=== PATIENT | female | born 1990 | race American Indian/Alaskan Native ===

== ENCOUNTER 2017-12-21 19:46 | Emergency (ER) | payer OTHER ==
[2017-12-21 20:26] VITALS: BP 104/62
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
[2017-12-21] MEDS ORDERED: NORCO 7.5/325 PO ONE (22:48)
[2017-12-21] MEDS ORDERED: FLEXERIL PO ONE (22:48)
[2017-12-21] MEDS ORDERED: NORCO 7.5/325 ONE (22:50)
[2017-12-21] MEDS ORDERED: FLEXERIL ONE (22:50)
== END 2017-12-22 00:55 | disposition home or self-care (01) ==
LOC: ED 19:46
DX: S16.1XXA Strain of muscle, fascia and tendon at neck level, initial encounter (principal); J01.90 Acute sinusitis, unspecified; J34.89 Other specified disorders of nose and nasal sinuses; M79.1 Myalgia; R51 Headache; V49.59XA Passenger injured in collision with other motor vehicles in traffic accident, initial encounter; Y93.89 Activity, other specified; Y92.89 Other specified places as the place of occurrence of the external cause; Y99.8 Other external cause status
CPT/HCPCS: 72040